=== PATIENT | male | born 1960 | race Caucasian/White ===

== ENCOUNTER → 2016-11-19 | Day surgery (SDC) | payer BC, OTHER ==
[~2016-11-19] VITALS: Ht 193 cm; Wt 142.2 kg
[~2016-11-19] MED LIST: ASPIRIN EC81 MG PO; CARAFATE1 GM PO; FEOSOL325 MG PO; FLONASE 50 MCG/16 GM NOSE; KEFLEX500 MG PO; PRAVACHOL20 MG PO; PRILOSEC20 MG PO; PRINIVIL (ZESTR20 MG PO; PROTONIX40 MG PO; RELAFEN500 MG PO; VASOTEC20 MG PO; ZYRTEC10 MG PO
== END | disposition disaster alternative care site (69) ==
LOC: GPOC 11-18 17:00 → GEND 07:51 → GPOC 08:00 → GEND 17:00
PROC: 0DB68ZX Excision of Stomach, Via Natural or Artificial Opening Endoscopic, Diagnostic (ICD-10-PCS; principal; 2016-11-19)
DX: K29.50 Unspecified chronic gastritis without bleeding (principal); Z90.79 Acquired absence of other genital organ(s); Z87.19 Personal history of other diseases of the digestive system
CPT/HCPCS: J7030